=== PATIENT | male | born 2000 | race Caucasian/White ===

== ENCOUNTER 2021-07-25 08:52 | Emergency (ER) | payer BC, SELFPAY ==
--- NOTE | ~2021-07-25 | CT_ITS ---
EXAMINATION: CT brain wo con DATE: 07/25/2021 09:48 INDICATION: Head injury. Headache and dizziness. TECHNIQUE: Computed tomography (CT) of the head was performed without intravenous contrast. The mA wa s adjusted according to patient size. Iterative reconstruction technique was employed. The dose-lengt h product was 605.33 mGy-cm. COMPARISON: None FINDINGS: There is no intracranial hemorrhage, acute infarction, or abnormal intracranial mass lesion . The ventricles are normal in size. The paranasal sinuses are clear. The orbits are normal. The mast oid air cells are normal. IMPRESSION: 1. Normal brain. Reviewed, dictated and finalized at location A. IMPRESSION: 1. Normal brain.
[2021-07-25 08:55] VITALS: BP 155/81; PULSE 90; RESP 16; TEMP 36.6; O2SAT 100
--- NOTE | 2021-07-25 09:58 | ED.HEATRA ---
HPI - Head Injury General Chief complaint: Head Injury Stated complaint: concussion Time Seen by Provider: 07/25/21 08:56 Source: patient and RN notes reviewed Mode of arrival: ambulatory Limitations: no limitations History of Present Illness HPI Narrative: This is a 21 year old male who presents for evaluation of a concussion s/p head injury. Patient states he was hit in the back of the head with volleyball 4 days ago. He denies having LOC at time of injury. HE has persistent headache, nausea, difficulty concentrating sense his head injury. He denies vomiting, focal weakness or fever. He reports headache 03/29, but he has not been taking any medication for his symptoms. Related Data Home Medications Medication Instructions Recorded Confirmed No Home Medications 07/25/21 07/25/21 Allergies Allergy/AdvReac Type Severity Reaction Status Date / Time nut - unspecified Allergy Anaphylaxis Verified 07/25/21 09:12 raw vegetable Allergy Anaphylaxis Verified 07/25/21 09:12 RAW FRUITS Allergy Anaphylaxis Uncoded 07/25/21 09:12 Review of Systems Review of Systems: All systems reviewed & are unremarkable except as noted in HPI and below PMFSH Past Medical History Medical History (Updated 07/25/21 @ 10:58 by Alicia Benitez MD) Patient denies medical problems Exam Narrative: GENERAL: Well-appearing, well-nourished, and in no acute distress. HEAD: Normocephalic, atraumatic EYES: PERRLA and EOMI, conjunctiva clear without discharge EARS: TM's clear bilaterally without erythema or dullness NECK: Supple, without lymphadenopathy or mass RESPIRATORY: No respiratory distress, Airway patent, Respirations non-labored, Clear to auscultation without rales, rhonchi or wheeze HEART: Regular rate and rhythm. No murmur heard. Normal peripheral pulses. ABDOMEN: Soft, nontender, nondistended, normal active bowel sounds. No masses. No rebound or guarding, No organomegaly. EXTREMITIES: No edema, normal strength with full range of motion. SKIN: Warm, dry, normal color without rash NEURO: Alert and oriented x3. CN 2-12 grossly intact. No focal deficits. PSYCH: Normal mood and affect. Course Reevaluation(s) Reevaluation #1: I discussed with patient discharge plan and treatment. He will need to follow up with primary care physician or neurologist. He will refrain for contact sports until symptoms resolve Date: 07/25/21 Time: 10:55 Vital Signs Vital signs: Vital Signs Temperature 98 F 07/25/21 08:55 Pulse Rate 90 07/25/21 08:55 Respiratory Rate 16 07/25/21 08:55 Blood Pressure 155/81 H 07/25/21 08:55 Pulse Oximetry 100 07/25/21 08:55 Temperature 98 F 07/25/21 08:55 Pulse Rate 75 07/25/21 11:17 Respiratory Rate 16 07/25/21 11:17 Blood Pressure 140/89 07/25/21 11:17 Pulse Oximetry 99 07/25/21 11:17 MDM - Head Injury Differential Diagnosis Differential diagnosis: Likely concussion without loss of consciousness, epidural hematoma, closed head injury, postconcussion syndrome and subdural hematoma Imaging Data Radiologist's impression: ITS Impressions Head CT 07/25/21 09:50 IMPRESSION: 1. Normal brain. Discharge Plan Discharge Clinical Impression: Concussion without loss of consciousness Qualifiers: Encounter type: initial encounter Qualified Code(s): S06.0X0A - Concussion without loss of consciousness, initial encounter Patient Disposition: Home, Self-Care Condition: Stable Instructions: Concussion (ED), Post Concussion Syndrome (ED) Additional Instructions: Your CT was normal. You are suffering from a concussion so do not take part in sports or activities that you may suffer another head injury your symptoms have resolved. Follow up with school doctor or neurologist if symptoms do not improve. Prescriptions: No Action No Home Medications RF: 0 Follow-up/Referrals: Evan Bullard MD [Physician] - Oliverio Méndez MD [Physic
[2021-07-25] MEDS: ONDANSETRON INJ 4 MG/2 ML VIAL IV PUSH (10:13)
[2021-07-25] MEDS: SODIUM CHLORIDE 0.9% IV 1,000 ML 999 ML IV CONT (10:14)
[2021-07-25 11:17] VITALS: BP 140/89; PULSE 75; RESP 16; O2SAT 99
== END 2021-07-25 11:22 | disposition home or self-care (01) ==
PROVIDERS: Emergency Provider General Practice
DX: S06.0X0A Concussion without loss of consciousness, initial encounter (principal); W21.06XA Struck by volleyball, initial encounter
CPT/HCPCS: 70450; 96365; 96375; 99284; J0131; J2405; J7030